=== PATIENT | male | born 1945 | race Caucasian/White ===

== ENCOUNTER 2016-06-22 10:03 | Emergency (ER) | payer OTHER ==
[~2016-06-22] VITALS: Ht 175.3 cm; Wt 66.0 kg
[~2016-06-22 10:03] MED LIST: ARICEPT10 MG PO; ATORVASTATIN CA40 MG PO; CARDIZEM60 MG PO; CHEWABLE MULTI1 EACH PO; COLACE100 MG PO; COUMADIN5 MG PO; COUMADIN6 MG PO; DAILY VITE1 EAC1 PO; DULCOLAX10 MG PR; FLEET MINERAL133 ML PR; FOLIC ACID1 MG PO; LACTULOSE10 GM/151 PO; LAXATIVE SUPPOS10 MG PR; LINZESS145 MCG PO; LISINOPRIL5 MG PO; LO-DOSE ASPIRIN81 M1 PO; MAALOX ADVANCE355 ML PO; METFORMIN HCL500 MG PO; MILK OF MAGN PO; MILK OF MAGNESI10 ML PO; NEURONTIN300 MG PO; NORVASC5 MG PO; PHILLIPS'400 MG/5 M PO; PRINIVIL10 MG PO; PROZAC20 MG PO; RANITIDINE HCL150 MG PO; SENOKOT,SENN1 TABLET PO; THIAMINE HCL100 MG PO; TRAZODONE HCL50 MG PO; TYLENOL REGULA325 MG PO; WARFARIN SODIUM2 MG PO; ZOFRAN0.8 MG/1 M PO; ZOFRAN4 MG PO
[2016-06-22 11:01] LABS: HEMATOCRIT 37.7 % (38.0-50.0); MCH 23.3 PG (29.0-34.0); MCHC 31.6 G/DL (30.0-36.0); MCV 73.9 FL (86-99); MEAN PLAT.VOLUME 10.4 uM^3 (9.0-12.4); PLATELET COUNT 244 K/uL (156-360); RBC DIS.WIDTH-CV 20.7 % (11.8-14.6); RBC DIS.WIDTH-SD 53.4 % (39-53); WHITE BLOOD COUNT 10.6 K/uL (4.1-10.2)
[2016-06-22 11:06] LABS: EOSINOPHIL (%) 0.5 % (0-5); EOSINOPHIL COUNT 0.1 K/uL (0-0.3); IMMATURE GRANULOCYTE (%) 0.3 % (0.0-0.7); IMMATURE GRANULOCYTE COUNT 0.3 K/uL; LYMPHOCYTE COUNT 1.7 K/uL (1.0-2.8); MONOCYTE (%) 5.6 % (3-12); MONOCYTE COUNT 0.6 K/uL (0-0.8); NEUTROPHIL (%) 77.4 % (45-76); NEUTROPHIL COUNT 8.2 K/uL (1.8-6.4)
[2016-06-22] MEDS ORDERED: ACETAMINOPHEN325 M3 PO ×2 (11:08→11:10)
[2016-06-22 11:10] LABS: CHLORIDE 106 mEq/L (99-109); POTASSIUM 4.5 mEq/L (3.7-5.4); SODIUM 140 mEq/L (136-147)
[2016-06-22 11:12] LABS: GLUCOSE 115 mg/dL (70-99)
[2016-06-22 11:13] LABS: ANION GAP 8 MEQ/L (2-14)
[2016-06-22 11:15] LABS: GFR ESTIMATE (CALCULATED) > 59 mL/min/; INTER. NORMALIZED RATIO 1.1; PROTHROMBIN TIME 10.7 (9.2-11.2)
[2016-06-22 11:16] LABS: UREA NITROGEN (BUN) 19 mg/dL (9-23)
[2016-06-22 11:30] VITALS: BP 123/66
== END 2016-06-22 13:55 ==
LOC: EME → EDBD 10:03 → EME 10:03
PROVIDERS: Emergency Medicine
DX: K92.2 Gastrointestinal hemorrhage, unspecified (principal); F03.90 Unspecified dementia, unspecified severity, without behavioral disturbance, psychotic disturbance, mood disturbance, and anxiety; I48.91 Unspecified atrial fibrillation; I10 Essential (primary) hypertension; E11.9 Type 2 diabetes mellitus without complications; Z79.84 Long term (current) use of oral hypoglycemic drugs; Z95.1 Presence of aortocoronary bypass graft; K21.9 Gastro-esophageal reflux disease without esophagitis; E78.5 Hyperlipidemia, unspecified; Z86.73 Personal history of transient ischemic attack (TIA), and cerebral infarction without residual deficits
CPT/HCPCS: 80048; 85025; 85610; 99281; 99285; J7030